=== PATIENT | female | born 1945 | race Caucasian/White ===

== ENCOUNTER 2018-05-17 08:45 | Emergency (ER) | payer MEDICARE, OTHER ==
[~2018-05-17] VITALS: Ht 162.6 cm; Wt 73.0 kg
[2018-05-17 09:44] VITALS: BP 137/66
== END 2018-05-17 10:48 | disposition home or self-care (01) ==
LOC: ED 10:40
DX: S39.012A Strain of muscle, fascia and tendon of lower back, initial encounter (principal); X58.XXXA Exposure to other specified factors, initial encounter; Y93.89 Activity, other specified; Y99.8 Other external cause status; Y92.89 Other specified places as the place of occurrence of the external cause
CPT/HCPCS: 72110; 99284

== ENCOUNTER 2021-01-15 08:01 | Emergency (ER) | payer MEDICARE, OTHER ==
[~2021-01-15] VITALS: Ht 162.6 cm; Wt 79.0 kg
--- NOTE | 2021-01-15 08:10 | NUR ---
clinical project coordinator completed. Pt states she cannot sit all the way on the bed if she wants to get back up today without severe pain secondary to her lower back pain. Pt requests bed be elevated to a higher level to not have to bend in her back so much to get onto bedside comfortably.
--- NOTE | 2021-01-15 08:41 | NUR ---
PA at bedside for exam.
--- NOTE | 2021-01-15 08:55 | NUR ---
Pt being taken for xray now via [email or web address]. Pt aware of need for UA sample when she returns.
[2021-01-15] MEDS ORDERED: NAPROXEN 500 MG TABLET ONE (08:56)
[2021-01-15] MEDS ORDERED: NAPROXEN 500 MG TABLET PO ONE (09:00)
[2021-01-15] MEDS ORDERED: HYDROcodone/APAP 5/325 TABLET PO ONE (09:00)
--- NOTE | 2021-01-15 09:14 | NUR ---
Pt just returned from radiology at this time.
[2021-01-15] MEDS ORDERED: HYDROcodone/APAP 5/325 TABLET ONE (09:19)
--- NOTE | 2021-01-15 09:30 | NUR ---
IV started x1 attempt with success, site benign. Started secondary to noted new order for abd/pelvis CT with contrast. Mumford PO given as well. Plan to wait for pain medications to start working before attempting to obtain UA sample made with pt to avoid difficulties getting up and to the restroom.
--- NOTE | 2021-01-15 10:35 | NUR ---
Pt assisted up and to restroom. Instructions for clean catch provided with stated understanding of these. Pt able to give UA sample and specimen sent to lab at this time. Pt still awaiting lab draw and CT scan. Some pain relief noted per pt after divorce mediator on reassessment.
[2021-01-15 10:53] LABS: BASOPHILS % (AUTO) 1 % (0-1); EOSINOPHILS % (AUTO) 1 % (1-7); LYMPHOCYTES % (AUTO) 13 % (22-44); MEAN CORPUSCULAR HEMOGLOBIN 30.9 pg (27.0-34.8); MEAN CORPUSCULAR HGB CONC 33.6 g/dL (32.4-35.8); MEAN PLATELET VOLUME 7.9 fL (7.4-10.4); MONOCYTES % (AUTO) 9 % (2-9); NEUTROPHILS % (AUTO) 76 % (42-75); PLATELET COUNT 323 x10^3/uL (130-400)
[2021-01-15 10:55] LABS: MD NO
[2021-01-15 11:02] LABS: ALANINE AMINOTRANSFERASE 28 U/L (12-78); ANION GAP 6 mmol/L (5-15); CALCIUM 9.2 mg/dL (8.5-10.1); CHLORIDE 109 mmol/L (98-107); CREATININE 0.99 mg/dL (0.55-1.02)
[2021-01-15 11:04] LABS: ALKALINE PHOSPHATASE 107 U/L (45-117); BILIRUBIN,TOTAL 0.7 mg/dL (0.2-1.0)
--- NOTE | 2021-01-15 11:31 | NUR ---
Pt out of dept to CT by juan jose at this time.
[2021-01-15 11:41] LABS: MICROSCOPIC NOT IND
[2021-01-15] MEDS ORDERED: OMNIPAQUE 350 MG/ML, 100ML BOTTLE ONE (11:49)
--- NOTE | 2021-01-15 12:25 | NUR ---
PA at bedside to discuss findings and plan for discharge.
[2021-01-15 13:01] VITALS: BP 131/71
== END 2021-01-15 13:03 | disposition home or self-care (01) ==
LOC: ED 10:09
DX: M51.36 Other intervertebral disc degeneration, lumbar region (principal); Z88.0 Allergy status to penicillin
CPT/HCPCS: 36415; 72110; 74177; 80053; 81003; 85025; 99285; Q9967